=== PATIENT | male | born 1970 | race Caucasian/White ===

== ENCOUNTER 2023-04-08 10:57 | Emergency (ER) | payer SELFPAY ==
[2023-04-08 10:58] VITALS: BP 148/88; PULSE 85; RESP 20; TEMP 36.8; O2SAT 97; BMI 25.8
--- NOTE | 2023-04-08 11:45 | CT_ITS ---
FINAL REPORT TECHNIQUE: Axial images were obtained of the lumbar spine by computed tomography. Coronal and sagittal reconstruction process performed. This study was performed with techniques to keep radiation doses as low as reasonably achievable (ALARA). Individualized dose reduction techniques using automated exposure control or adjustment of mA and/or kV according to the patient''s size were employed. CLINICAL HISTORY: fall down stairs, midline pain FINDINGS: There is about 30% loss of height of the L1 vertebral body. There is hypertrophic osteophyte formation which is probably chronic. There appears to be a limbus vertebrae anteriorly at L5 which appears chronic. There is no acute fracture. L1-2: No significant spinal canal stenosis or neuroforaminal narrowing. L2-3: No significant spinal canal stenosis or neuroforaminal narrowing. L3-4: Mild diffuse disc bulge with mild bilateral neuroforaminal narrowing. L4-5: Mild diffuse disc bulge with mild bilateral neuroforaminal narrowing. L5-S1. No significant spinal canal stenosis or neuroforaminal narrowing. Note is made of tiny nonobstructing stones in the left renal collecting system. IMPRESSION: No acute fracture. 30% loss of height of the L1 vertebral body appears chronic. 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 Diffuse disc bulges and mild bilateral neuroforaminal narrowing at L3-4 and L4-5. Tiny nonobstructing stones in the left renal collecting system. Reviewed, Interpreted and Dictated by Dwain Lopez MD Transcribed by Radha Sánchez Authenticated and [facility]
--- NOTE | 2023-04-08 11:45 | CT_ITS ---
FINAL REPORT TECHNIQUE: Axial images were obtained of the thoracic spine by computed tomography. Coronal and sagittal reconstruction process performed. This study was performed with techniques to keep radiation doses as low as reasonably achievable (ALARA). Individualized dose reduction techniques using automated exposure control or adjustment of mA and/or kV according to the patient's size were employed. CLINICAL HISTORY: fall down stairs, midline pain FINDINGS: Thoracic vertebrae show normal height. There is moderate disc space narrowing throughout the thoracic spine. There is 10 degrees of thoracic scoliosis convex to the right. The facets are properly aligned. There is no acute fracture. IMPRESSION: No acute fracture. Reviewed, Interpreted and Dictated by Dwain Lopez MD Transcribed by Radha Sánchez Authenticated and [facility]
--- NOTE | 2023-04-08 11:46 | HMH.EDGENADL ---
Discharge Plan Disposition Patient Disposition: Home, Self-Care Prescriptions Prescriptions: New ibuprofen 800 mg tablet 800 mg PO TID PRN (Reason: pain) 7 Days Qty: 20 0RF cyclobenzaprine 5 mg tablet 5 mg PO TID PRN (Reason: muscle spasm) 5 Days Qty: 15 0RF prednisone 50 mg tablet 50 mg PO DAILY 5 Days Qty: 5 0RF Rx Instructions: Please begin 1 day after ED visit Referrals Follow up/Referrals: Provider,Referral, MD [Primary Care Provider] - See instructions Activity Restrictions/Add. Instructions Additional Instructions/Restrictions: Please follow-up with your primary care doctor or your neurosurgeon if your symptoms continue for an outpatient MRI. No emergent medical condition was identified today. Clinical Impressions Clinical Impression: Contusion of lower back, Contusion of mid back Instructions Patient Instructions: DI for Low Back Pain Discharge ED Provider: Brendan Cruz General Adult HPI General Chief complaint: Back Pain/Injury Stated complaint: back pain, leg numbness Time Seen by Provider: 04/08/23 11:39 Mode of Arrival: Wheelchair Source of Information: Patient Limitations: No Limitations Description of Symptoms (Recalled from ER Triage Doc. by RN): Pt c/o mid to low back pain that has been present for 3-4 days but worsened this morning. He reports parathesia to BLE R>L. States he fell down 5-6 steps 3-4 days ago. He has had previous back issues and surgeries. 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 Denies any bowel or bladder incontinence. He also reports spasms to his back. History of Present Illness HPI narrative: Patient is a 52-year-old male claims that he fell down 3-4 stairs several days ago and has midline thoracic and lumbar spine pain associated with this. States has had chronic back pain since injuries that he sustained in 2006 but this exacerbated them. Denies any urinary or bowel incontinence any urinary retention any lower extremity paralysis any history of injection drug use or fever and he does have a history of lung cancer. No known mets to his spine. Related Data Previous Rx's Medication Instructions Recorded cyclobenzaprine 5 mg tablet 5 mg PO TID PRN muscle spasm 5 04/08/23 days #15 tabs ibuprofen 800 mg tablet 800 mg PO TID PRN pain 7 days #20 04/08/23 tabs prednisone 50 mg tablet 50 mg PO DAILY 5 days #5 tabs 04/08/23 Allergies Allergy/AdvReac Type Severity Reaction Status Date / Time adhesive tape Allergy Intermediate Rash Verified 04/08/23 11:48 Penicillins Allergy Verified 04/08/23 11:48 [facility] Disclaimer: The information contained in this section may have been updated after the patient was seen, as this information can be updated by other users. Social History Smoking Status: Current every day smoker alcohol intake: never current occupational status: other Travel in the last 8 weeks: None ROS Obtained: Yes All systems reviewed & no additional complaints except as documented Physical Exam General General appearance: alert and in no apparent distress Respiratory Respiratory exam: Present normal lung sounds bilaterally; Absent respiratory distress Cardiovascular Cardiovascular exam: Present regular rate; Absent tachycardia Back Exam Back exam: Present other (Midline T and L-spine tenderness there is no step-off or deformity lower extremity motor and sensory exams normal no saddle anesthesia) Neurological Exam Neurological exam: Present alert and oriented X3 Medical Decision Making Feng Inquiry Pt receiving controlled substance: No Vital Signs: 04/08/23 10:58 04/08/23 13:24 04/08/23 13:31 Temperature 98.3 F Temperature Source Oral Pulse Rate 52 L 52 L Pulse Rate [Right] 85 Respiratory Rate 20 16 17 Blood Pressure 122/72 131/74 Blood Pressure [Right Arm] 148/88 H Blood Pressure Mean 92 101 Blood Pressure Mean [Right Arm] 108 02 Sat by Pulse Oximetry 97 99 99 Oxygen Delivery Method Room Air Room
[2023-04-08 13:24] VITALS: BP 122/72; PULSE 52; RESP 16; O2SAT 99
[2023-04-08 13:31] VITALS: BP 131/74; PULSE 52; RESP 17; O2SAT 99
--- NOTE | 2023-04-08 13:47 | PC.NURSE ---
Rounded on patient; updated on plan of care call dietz within reach of patient
[2023-04-08 14:04] VITALS: BP 146/98; PULSE 82; RESP 20; TEMP 36.8; O2SAT 98
== END 2023-04-08 14:13 | disposition home or self-care (01) ==
PROVIDERS: Emergency Provider Student in an Organized Health Care Education/Training Program
DX: S30.0XXA Contusion of lower back and pelvis, initial encounter (principal); S20.229A Contusion of unspecified back wall of thorax, initial encounter; F17.210 Nicotine dependence, cigarettes, uncomplicated; W10.8XXA Fall (on) (from) other stairs and steps, initial encounter
CPT/HCPCS: 72128; 72131; 96374; 96375; 99284; J0131

== ENCOUNTER 2023-07-30 13:28 | Emergency (ER) | payer MEDICAID, SELFPAY ==
[2023-07-30] VITALS (14 sets, daily range): BP systolic 126–155; BP diastolic 66–106; PULSE 53–128; RESP 18–22; TEMP 36.7–37; O2SAT 95–99; BMI 21.5
--- NOTE | 2023-07-30 13:29 | PC.NURSE ---
Dr. Lockwood at [facility] for pt eval
--- NOTE | 2023-07-30 13:31 | CT_ITS ---
PROCEDURE INFORMATION: Exam: CT Abdomen And Pelvis With Contrast Exam date and time: 07/30/2023 6:23 PM Age: 52 years old Clinical indication: Abdominal pain; Additional info: Lung cancer, diffuse abd pain, bloody stools TECHNIQUE: Imaging protocol: Computed tomography of the abdomen and pelvis with contrast. 3D rendering (Not supervised by radiologist): MIP and/or 3D reconstructed images were created by the technologist. Radiation optimization: All CT scans at this facility use at least one of these dose optimization techniques: automated exposure control; mA and/or kV adjustment per patient size (includes targeted exams where dose is matched to clinical indication); or iterative reconstruction. Contrast material: ISOVUE; Contrast volume: 100 ml; Contrast route: IV; COMPARISON: CT ANGIO CHEST 07/30/2023 6:23 PM FINDINGS: Mediastinal space: Question mild wall thickening in the esophagus and stomach although contracted status limits characterization. The appearance is suspicious for mild gastroesophagitis. No evidence of perforation or obstruction. Liver: Normal contour. No mass lesions. No intrahepatic biliary ductal dilatation. Gallbladder and bile ducts: Normal. No calcified stones. No ductal dilation. Pancreas: No acute pancreatic abnormalities. Small calcifications in the pancreatic head unchanged from 04/08/2023. Spleen: Normal. No splenomegaly. Adrenal glands: Normal. No adrenal mass. Kidneys and ureters: No acute abnormalities. No hydronephrosis or hydroureter. There are 2 small nonobstructive left renal stones, largest 3 mm. There are 3 small nonobstructive right renal stones, largest 3 mm. No ureteral stones. Stomach and bowel: Liquid stool content in the distal small bowel and proximal colon suspicious for developing diarrheal state, possibly mild gastroenteritis/enterocolitis without gross bowel wall changes. No evidence of obstruction or perforation. Appendix: The appendix is normal in caliber and demonstrates no evidence of appendicitis. Intraperitoneal space: No peritoneal free fluid or air. Vasculature: No acute process. No abdominal aortic aneurysm. Moderate calcific atherosclerosis. Lymph nodes: No adenopathy. Urinary bladder: The urinary bladder is moderately distended but otherwise unremarkable. Reproductive: Unremarkable as visualized. Bones/joints: No acute osseous abnormalities. Mild chronic appearing superior endplate compression deformity of L1 unchanged. L5 limbus vertebrae configuration again noted. Soft tissues: Unremarkable. IMPRESSION: 1. Question mild changes of enterocolitis and developing diarrheal state. There is no evidence of active GI hemorrhage on single phase assessment. 2. No acute vascular abnormalities are identified. No evidence of dissection or aneurysm. Moderate calcific atherosclerosis without significant stenosis. 3. Small bilateral nonobstructive renal stones. 4. Additional nonemergent findings detailed above.
--- NOTE | 2023-07-30 13:31 | CT_ITS ---
PROCEDURE INFORMATION: Exam: CTA Chest With Contrast Exam date and time: 07/30/2023 6:23 PM Age: 52 years old Clinical indication: Pain; Chest pressure; Additional info: Cp to back, cancer, tachy. Diccection vs pe vs mass TECHNIQUE: Imaging protocol: Computed tomographic angiography of the chest with contrast. Exam focused on the arteries. 3D rendering (Not supervised by radiologist): MIP and/or 3D reconstructed images were created by the technologist. Radiation optimization: All CT scans at this facility use at least one of these dose optimization techniques: automated exposure control; mA and/or kV adjustment per patient size (includes targeted exams where dose is matched to clinical indication); or iterative reconstruction. Contrast material: ISOVUE 370; Contrast volume: 100 ml; Contrast route: INTRAVENOUS (IV); COMPARISON: CR XR CHEST PORTABLE 07/30/2023 1:34 PM FINDINGS: Pulmonary arteries: The pulmonary arteries enhance appropriately with no evidence of pulmonary embolism. Respiratory motion slightly limits assessment of the small peripheral branch vessels although no suspected peripheral emboli are identified. Aorta: Mild aortic ectasia/tortuosity and calcific atherosclerosis. No aortic aneurysm or dissection. No mediastinal hematoma. Thyroid: The visualized thyroid gland demonstrates no gross abnormality. Lungs: Mild bilateral bronchial wall thickening consistent with bronchitis or bronchial edema. No bronchiectasis. No bronchial occlusions. No gross pulmonary infiltrates or edema pattern. Minimal paraseptal emphysematous changes in the pulmonary apices, right greater than left. No pulmonary mass lesions are identified. Pleural spaces: No pleural effusion. No pneumothorax. Heart: Heart size normal. Minimal coronary artery calcification. No pericardial effusion. Mediastinal space: Mild esophageal wall thickening. Stomach largely contracted although there may be mild gastric fold/wall thickening as well. The findings are suspicious for mild gastroesophagitis. No evidence of perforation or obstruction. Consider nonemergent esophagram or endoscopic assessment as clinically indicated. Lymph nodes: No supraclavicular or axillary adenopathy. No mediastinal or hilar adenopathy. Bones/joints: No acute osseous abnormalities are identified. Multilevel moderate disc degenerative changes in the mid and upper thoracic spine. Severe disc space narrowing with chronic Schmorl's node formation, endplate sclerosis, and mild marginal spurring at T7-T8, with no adjacent paraspinous swelling or fluid collection, unchanged from 04/08/2023, consistent with degenerative/osteoarthritic changes. Soft tissues: The soft tissues of the chest wall demonstrate no acute abnormality. Other findings: Bilateral calcified granulomas. IMPRESSION: 1. No evidence of pulmonary embolism or aortic dissection. 2. Mild esophageal wall thickening and possibly some mild wall/fold thickening in the stomach, suspicious for gastroesophagitis. Consider nonemergent esophagram or endoscopic assessment as clinically indicated. No evidence of perforation or obstruction. 3. Moderate multilevel advanced disc degenerative changes in the mid and upper thoracic spine, greatest at T7-T8, stable appearance from 04/08/2023. 4. Mild bronchial wall thickening suggesting mild age indeterminate bronchitis or bronchial edema. No gross pulmonary infiltrates. 5. Additional nonemergent findings detailed above. COMMENTS: The presence of pulmonary emphysema on CT is an independent risk factor for lung cancer. In the absence of a history or active diagnosis of lung cancer, it is recommended that this patient with emphysema be evaluated for enrollment in a low dose CT lung cancer screening program.
--- NOTE | 2023-07-30 13:31 | XR_ITS ---
PROCEDURE INFORMATION: Exam: XR Chest Exam date and time: 07/30/2023 1:34 PM Age: 52 years old Clinical indication: Cough and other: Chest pain, cough; Smoker's cough; Additional info: Cp, cancer TECHNIQUE: Imaging protocol: Radiologic exam of the chest. Views: 1 view. COMPARISON: CT THORACIC SPINE WO CON 04/08/2023 12:29 PM FINDINGS: Lungs: Hyperexpanded lung zeng consistent with COPD . No consolidation. Pleural spaces: Unremarkable. No pleural effusion. No pneumothorax. Heart/Mediastinum: Unremarkable. No cardiomegaly. Bones/joints: Unremarkable. IMPRESSION: No acute findings.
--- NOTE | 2023-07-30 13:34 | ECG_ITS ---
APPROVED REPORT Exam: Resting ECG HR:70 bpm ECG Measurements Heart Rate 70 AXES SC 113 P 159 QRSd 94 QRS 92 QT 341 T 110 QTc 362 Conclusion ECTOPIC ATRIAL RHYTHM WITH SHORT SC INTERVAL WITH OCCASIONAL SUPRAVENTRICULAR PREMATURE COMPLEXES BORDERLINE RIGHT AXIS DEVIATION [QRS AXIS > 90] MODERATE ST DEPRESSION [0.05+ mV ST DEPRESSION] ABNORMAL ECG UNCONFIRMED REPORT Electronically signed by : Jhonny Kirby MD 07/31/2023 15:13:04
--- NOTE | 2023-07-30 13:34 | ED_ITS ---
Discharge Plan Disposition Patient Disposition: Home, Self-Care Condition: Fair Prescriptions Prescriptions: New pantoprazole [Protonix] [address] for susp in packet 40 mg PO BID Qty: 30 0RF sucralfate [Carafate] 1 gram tablet 1 g PO TID 28 Days Qty: 84 0RF levetiracetam [Keppra] 1,000 mg tablet 1,000 mg PO Q12H 14 Days Qty: 28 0RF methocarbamol 500 mg tablet 500 mg PO Q8H Qty: 90 0RF Discontinued ibuprofen 800 mg tablet 800 mg PO TID PRN (Reason: pain) 7 Days Qty: 20 0RF cyclobenzaprine 5 mg tablet 5 mg PO TID PRN (Reason: muscle spasm) 5 Days Qty: 15 0RF prednisone 50 mg tablet 50 mg PO DAILY 5 Days Qty: 5 0RF Rx Instructions: Please begin 1 day after ED visit Referrals Follow up/Referrals: Provider,Referral, MD [Primary Care Provider] - See instructions Activity Restrictions/Add. Instructions Additional Instructions/Restrictions: As discussed, after being evaluated by the hospitalist, and after shared decision-making, you are being discharged at this time. Please return with any new or worsening symptoms. Clinical Impressions Clinical Impression: Gastritis, Upper gastrointestinal bleed, Hematochezia Discharge ED Provider: Jose Jay HPI <Ifeanyi Lockwood MD - Last Filed: 07/30/23 14:40> General Chief Complaint: Chest Pain Stated Complaint: Chest Pain Time Seen by Provider: 07/30/23 13:31 History of Present Illness HPI narrative: Patient is a 52-year-old male with past medical history of untreated lung cancer who presents emergency department for evaluation of chest pain abdominal pain. History is obtained by patient at bedside. Patient had acute onset substernal chest pain radiating to his back with associated shortness of breath at 3 AM this morning that woke him out of his sleep. Patient had 1 bloody bowel movement, states he has intermittent bloody bowel movements about 1 every month or so that are bright red, no melena. Patient has a history of lung cancer that has been untreated for multiple years. Due to severity of pain he presents here for continued evaluation. Related Data Previous Rx's Medication Instructions Recorded levetiracetam 1,000 mg tablet 1,000 mg PO Q12H 2 weeks #28 tabs 07/30/23 (Keppra) methocarbamol 500 mg tablet 500 mg PO Q8H #90 tabs 07/30/23 pantoprazole 40 mg granules 40 mg PO BID #30 ea 07/30/23 delayed-release for susp in packet (Protonix) sucralfate 1 gram tablet (Carafate) 1 g PO TID 4 weeks #84 tabs 07/30/23 Allergies Allergy/AdvReac Type Severity Reaction Status Date / Time adhesive tape Allergy Intermediate Rash Verified 04/08/23 11:48 Penicillins Allergy Verified 04/08/23 11:48 PFSH <Ifeanyi Lockwood MD - Last Filed: 07/30/23 14:40> PFSH Disclaimer: The information contained in this section may have been updated after the p atient was seen, as this information can be updated by other users. Social History (Updated 04/08/23 @ 14:04 by Brendan Cruz MD) Smoking Status: Current every day smoker alcohol intake: never current occupational status: other Travel in the last 8 weeks: None <Ifeanyi Lockwood MD - Last Filed: 07/30/23 14:40> ROS Obtained: Yes Systems reviewed as appropriate & no additional complaints except as documented Physical Exam <Ifeanyi Lockwood MD - Last Filed: 07/30/23 14:40> General General appearance: alert and in no apparent distress Head Head exam: atraumatic and normocephalic Eye Eye exam: Present PERRL and EOMI ENT ENT exam: Present mucous membranes moist Neck Neck exam: Present normal inspection Chest Chest inspection: Present normal inspection and symmetric chest wall rise Respiratory Respiratory exam: Present normal lung sounds bilaterally and other (Tachypnea); Absent respiratory distress Cardiovascular Cardiovascular exam: Present normal rhythm and tachycardia Abdominal Exam Abdominal exam: Present soft and tenderness (Diffuse); Absent guarding or rebound Extremities Exam Extremities exam: Present normal inspection Neurological Exam Neurological exam: Present alert Psychiatric Psychiatric exam: Present normal affect Skin Skin exam: Present warm and dry HEART Score <Ifeanyi Lockwood MD - Last Filed: 07/30/23 14:40> HEART Score HEART Score assessment performed?: Yes History (anamnesis): Moderately suspicious ECG: Normal Age: 45-65 years Risk factors: 1-2 risk factors Troponin: </= normal limit HEART Score: 3 <Jose Jay MD - Last Filed: 07/31/23 23:19> HEART Score HEART Score: 3 Critical Care <Ifeanyi Lockwood MD - Last Filed: 07/30/23 14:40> Critical Care Time Critical Care Time: No Medical Decision Making <Ifeanyi Lockwood MD - Last Filed: 07/30/23 14:40> Feng Inquiry Pt receiving controlled substance: No Vital Signs Vital Signs: 07/30/23 13:28 07/30/23 13:46 07/30/23 13:30 Temperature 98.6 F Temperature Source Oral Pulse Rate 77 128 H Pulse Rate [Right Radial] 77 Respiratory Rate 22 Blood Pressure 148/106 H Blood Pressure [Right Arm] 148/106 H Blood Pressure Mean Blood Pressure Mean [Right Arm] 120 Blood Pressure Position 02 Sat by Pulse Oximetry 99 99 Oxygen Delivery Method Room Air Room Air 07/30/23 14:00 07/30/23 15:01 07/30/23 15:30 Temperature Temperature Source Pulse Rate 115 H 56 L 56 L Pulse Rate [Right Radial] Respiratory Rate Blood Pressure 126/87 129/82 127/66 Blood Pressure [Right Arm] Blood Pressure Mean 86 Blood Pressure Mean [Right Arm] Blood Pressure Position 02 Sat by Pulse Oximetry 99 95 96 Oxygen Delivery Method Room Air Room Air Room Air 07/30/23 16:00 07/30/23 17:01 07/30/23 17:30 Temperature Temperature Source Pulse Rate 60 65 60 Pulse Rate [Right Radial] Respiratory Rate Blood Pressure 141/89 H 137/85 155/87 H Blood Pressure [Right Arm] Blood Pressure Mean 106 Blood Pressure Mean [Right Arm] Blood Pressure Position 02 Sat by Pulse Oximetry 97 96 96 Oxygen Delivery Method Room Air Room Air Room Air 07/30/23 18:01 07/30/23 19:00 07/30/23 19:31 Temperature Temperature Source Pulse Rate 64 53 L 72 Pulse Rate [Right Radial] Respiratory Rate Blood Pressure 145/83 H 131/84 145/85 H Blood Pressure [Right Arm] Blood Pressure Mean Blood Pressure Mean [Right Arm] Blood Pressure Position 02 Sat by Pulse Oximetry 97 97 99 Oxygen Delivery Method Room Air Room Air 07/30/23 20:00 07/30/23 21:39 Temperature 98.1 F Temperature Source Oral Pulse Rate 61 60 Pulse Rate [Right Radial] Respiratory Rate 18 Blood Pressure 132/85 135/82 Blood Pressure [Right Arm] Blood Pressure Mean Blood Pressure Mean [Right Arm] Blood Pressure Position Sitting 02 Sat by Pulse Oximetry 98 Oxygen Delivery Method Room Air Lab Data Labs: Lab Results 07/30/23 13:30: WBC 15.0 H, RBC 5.85, Hgb 17.7, Hct 54.1 H, MCV 92.5, MCH 30.3, MCHC 32.7, RDW 13.9, Plt Count 241, MPV 11.5 H, Neut % (Auto) 88.1 H, Lymph % (Auto) 7.8 L, Henderson % (Auto) 3.4, Eos % (Auto) 0.4, Baso % (Auto) 0.1, Neut # (Auto) 13.2 H, Lymph # (Auto) 1.2, Henderson # (Auto) 0.5, Eos # (Auto) 0.0, Baso # (Auto) 0.0, Total Counted 100, Neutrophils % (Manual) 83 H, Lymphocytes % ( Manual) 16, Monocytes % (Manual) 1 L, Platelet Estimate Normal, RBC Morphology Normal, Sodium 139, Potassium 3.9, Chloride 102, Carbon Dioxide 24, Anion Gap 16.9 H, BUN 14, Creatinine 1.00, Estimated Creat Clear 81, Estimated GFR 78, Est GFR ( Amer) 94, Glucose 117 H, Calcium 9.2, Total Bilirubin 0.9, AST 36, ALT 35, Alkaline Phosphatase 150 H, Troponin I < 0.01, Total Protein 9.1 H, Albumin 4.8, Globulin 4.3 H, Albumin/Globulin Ratio 1.1, Lipase 86 07/30/23 13:47: Urine Color Yellow, Urine Appearance Clear, Urine pH 5.5, Ur S pecific Whitlash >= 1.030, Urine Protein 2+, Urine Glucose (UA) Negative, Urine Ketones Trace, Urine Blood 2+, Urine Nitrate Negative, Urine Bilirubin 1+ A, Urine Urobilinogen 0.2, Ur Leukocyte Esterase Negative, Urine RBC 3-5, Urine WBC Occasional, Ur Squamous Epith Cells 3-5, Urine Bacteria Trace 07/30/23 16:45: Troponin I < 0.01 07/30/23 13:30 07/30/23 13:30 Response Orders (Tests/Meds): ED MEDICATIONS Discontinued Medications Generic Name Dose Route Start Last Admin Trade Name Freq PRN Reason Stop Dose Admin Acetaminophen 1,000 mg 07/30/23 13:31 07/30/23 13:58 Acetaminophen 1,000mg/100ml Vial IV 07/30/23 13:32 1,000 mg ONCE ONE Administration Belladonna Alkaloids 60 ml 07/30/23 20:01 07/30/23 20:03 Belladonna Alkaloids 60 Ml Ml PO 07/30/23 20:02 60 ml ONCE ONE Administration Diphenhydramine HCl 25 mg 07/30/23 14:28 07/30/23 17:26 Diphenhydramine 50mg/Ml Vial IV 07/30/23 14:29 25 mg ONCE ONE Administration Famotidine 20 mg 07/30/23 14:29 07/30/23 17:25 Famotidine 20mg/2ml Vial IV 07/30/23 14:30 20 mg ONCE ONE Administration Lactated Ringer's 1,000 mls @ 999 mls/hr 07/30/23 13:39 07/30/23 13:59 Lactated Ringer's 1000 Ml Bag IV 07/30/23 14:39 999 mls/hr .Q1H1M ONE Administration Ceftriaxone Sodium 1 gm/ 50 mls @ 100 mls/hr 07/30/23 21:00 07/30/23 21:08 Sodium Chloride IV 08/09/23 20:59 100 mls/hr Q12H TIFFANIE Administration Pantoprazole Sodium 80 mg/ 100 mls @ 100 mls/hr 07/30/23 20:53 Sodium Chloride IV 07/30/23 21:52 ONCE ONE Pantoprazole Sodium 80 mg/ 100 mls @ 10 mls/hr 07/30/23 22:00 Sodium Chloride IV 08/02/23 21:59 .Q10H TIFFANIE Octreotide Acetate 500 mcg/ 255 mls @ 25.5 mls/hr 07/30/23 21:00 Sodium Chloride IV 08/29/23 20:59 .Q10H TIFFNAIE 50 MCG/HR Iopamidol 100 ml 07/30/23 18:29 07/30/23 18:30 Iopamidol-370 (76%);100ml Bottle IV 07/30/23 18:30 100 ml ONCE ONE Administration Methylprednisolone Sodium Succinate 125 mg 07/30/23 14:29 07/30/23 14:35 Methylprednisolone Sod Succ 125mg Vial IV 07/30/23 14:30 125 mg ONCE ONE Administration Morphine Sulfate 4 mg 07/30/23 13:31 07/30/23 13:59 Morphine 4mg/Ml Syringe IV 07/30/23 13:32 4 mg ONCE ONE Administration Nicotine 21 mg 07/30/23 14:38 07/30/23 14:51 Nicotine 21mg/24hr Patch TD 08/29/23 14:37 21 mg DAILYP PRN Administration Nicotine Cravings Ondansetron HCl 4 mg 07/30/23 13:48 07/30/23 13:58 Ondansetron 4mg/2ml Vial IV 07/30/23 13:49 4 mg ONCE ONE Administration Sodium Chloride 8 ml 07/30/23 14:29 Sodium Chloride 0.9% 10ml Vial IV 08/29/23 14:28 NEEDED PRN dilute pepcid Sodium Chloride 50 ml 07/30/23 18:29 07/30/23 18:30 0.9 % Sodium Chloride 50 Ml Vial IV 07/30/23 18:30 50 ml ONCE ONE Administration Sodium Chloride 10 ml 07/30/23 18:29 07/30/23 18:30 Sodium Chloride 0.9% 10ml Syr (Rad Only) IV 07/30/23 18:30 10 ml ONCE ONE Administration ORDERS Category Date Time Status CT abdomen pelvis w con Stat Cat Scan 07/30/23 13:[address] angio chest - dissection Stat Cat Scan 07/30/23 13:31 Completed CXR --portable [XR chest portable] Stat Exams 07/30/23 13:31 Completed CBC w/Auto Diff [Complete Blood Count Auto Diff] Stat Lab 07/30/23 13:30 Completed CMP [Comprehensive Metabolic Panel] Stat Lab 07/30/23 13:30 Completed Lipase Stat Lab 07/30/23 13:30 Completed Trop I [Troponin I] Stat Lab 07/30/23 13:30 Completed Troponin I Q3H Lab 07/30/23 16:45 Completed UA [Urinalysis and Microscopic] Stat Lab 07/30/23 13:47 Completed ECG initial Besson Routine Y 07/30/23 13:34 Completed ECG Data Tracing #1: ECG Narrative: Independently interpreted by me, rate is 70, rhythm is largely regular with an ectopic atrial beat, no ST elevation in anatomical contiguous leads, QTc 362. MDM Narrative Medical Decision Narrative: In summary patient is a 52-year-old male with past medical history described above who presents emergency department for evaluation of chest pain, abdominal pain. Patient is hemodynamically stable and appearing in pain upon arrival, tachycardic and tachypneic clear to auscultation. Differential includes worsening malignancy, ACS, pulmonary embolism, pancreatitis, colitis, among others. Workup will be conducted with hematologic labs, CTA chest, CT abdomen pelvis IV contrast, urinalysis. Initial inventions include crystalloid bolus, IV Tylenol, morphine. Initial workup reviewed by me, hematologic labs remarkable for slightly elevated anion gap, remainder are nonactionable. Urinalysis interpreted by me and not consistent with infection. Upon further questioning patient states that he is allergic to IV contrast, he has a diffuse burning sensation and felt as if he was about to have a seizure multiple years ago. Patient never had a true seizure, it responded to Benadryl, he did not have anaphylaxis, no hypotension. Given this and the multitude of pathologies that would require IV contrast to be ruled out particularly in his case shared decision-making discussion was had at bedside and patient wishes to proceed with pretreatment and subsequent administration of IV contrast. Pretreatment and conduction of scans pending at time of transfer to the oncoming physician, Dr. Jay. <Jose Jay MD - Last Filed: 07/31/23 23:19> Vital Signs Vital Signs: 07/30/23 13:28 07/30/23 13:46 07/30/23 13:30 Temperature 98.6 F Temperature Source Oral Pulse Rate 77 128 H Pulse Rate [Right Radial] 77 Respiratory Rate 22 Blood Pressure 148/106 H Blood Pressure [Right Arm] 148/106 H Blood Pressure Mean Blood Pressure Mean [Right Arm] 120 Blood Pressure Position 02 Sat by Pulse Oximetry 99 99 Oxygen Delivery Method Room Air Room Air 07/30/23 14:00 07/30/23 15:01 07/30/23 15:30 Temperature Temperature Source Pulse Rate 115 H 56 L 56 L Pulse Rate [Right Radial] Respiratory Rate Blood Pressure 126/87 129/82 127/66 Blood Pressure [Right Arm] Blood Pressure Mean 86 Blood Pressure Mean [Right Arm] Blood Pressure Position 02 Sat by Pulse Oximetry 99 95 96 Oxygen Delivery Method Room Air Room Air Room Air 07/30/23 16:00 07/30/23 17:01 07/30/23 17:30 Temperature Temperature Source Pulse Rate 60 65 60 Pulse Rate [Right Radial] Respiratory Rate Blood Pressure 141/89 H 137/85 155/87 H Blood Pressure [Right Arm] Blood Pressure Mean 106 Blood Pressure Mean [Right Arm] Blood Pressure Position 02 Sat by Pulse Oximetry 97 96 96 Oxygen Delivery Method Room Air Room Air Room Air 07/30/23 18:01 07/30/23 19:00 07/30/23 19:31 Temperature Temperature Source Pulse Rate 64 53 L 72 Pulse Rate [Right Radial] Respiratory Rate Blood Pressure 145/83 H 131/84 145/85 H Blood Pressure [Right Arm] Blood Pressure Mean Blood Pressure Mean [Right Arm] Blood Pressure Position 02 Sat by Pulse Oximetry 97 97 99 Oxygen Delivery Method Room Air Room Air 07/30/23 20:00 07/30/23 21:39 Temperature 98.1 F Temperature Source Oral Pulse Rate 61 60 Pulse Rate [Right Radial] Respiratory Rate 18 Blood Pressure 132/85 135/82 Blood Pressure [Right Arm] Blood Pressure Mean Blood Pressure Mean [Right Arm] Blood Pressure Position Sitting 02 Sat by Pulse Oximetry 98 Oxygen Delivery Method Room Air Lab Data Labs: Lab Results 07/30/23 13:30: WBC 15.0 H, RBC 5.85, Hgb 17.7, Hct 54.1 H, MCV 92.5, MCH 30.3, MCHC 32.7, RDW 13.9, Plt Count 241, MPV 11.5 H, Neut % (Auto) 88.1 H, Lymph % (Auto) 7.8 L, Henderson % (Auto) 3.4, Eos % (Auto) 0.4, Baso % (Auto) 0.1, Neut # (Auto) 13.2 H, Lymph # (Auto) 1.2, Henderson # (Auto) 0.5, Eos # (Auto) 0.0, Baso # (Auto) 0.0, Total Counted 100, Neutrophils % (Manual) 83 H, Lymphocytes % (Manual) 16, Monocytes % (Manual) 1 L, Platelet Estimate Normal, RBC Morphology Normal, Sodium 139, Potassium 3.9, Chloride 102, Carbon Dioxide 24, Anion Gap 16.9 H, BUN 14, Creatinine 1.00, Estimated Creat Clear 81, Estimated GFR 78, Est GFR ( Amer) 94, Glucose 117 H, Calcium 9.2, Total Bilirubin 0.9, AST 36, ALT 35, Alkaline Phosphatase 150 H, Troponin I < 0.01, Total Protein 9.1 H, Albumin 4.8, Globulin 4.3 H, Albumin/Globulin Ratio 1.1, Lipase 86 07/30/23 13:47: Urine Color Yellow, Urine Appearance Clear, Urine pH 5.5, Ur Specific Whitlash >= 1.030, Urine Protein 2+, Urine Glucose (UA) Negative, Urine Ketones Trace, Urine Blood 2+, Urine Nitrate Negative, Urine Bilirubin 1+ A, Urine Urobilinogen 0.2, Ur Leukocyte Esterase Negative, Urine RBC 3-5, Urine WBC Occasional, Ur Squamous Epith Cells 3-5, Urine Bacteria Trace 07/30/23 16:45: Troponin I < 0.01 Response Orders (Tests/Meds): ED MEDICATIONS Discontinued Medications Generic Name Dose Route Start Last Admin Trade Name Freq PRN Reason Stop Dose Admin Acetaminophen 1,000 mg 07/30/23 13:31 07/30/23 13:58 Acetaminophen 1,000mg/100ml Vial IV 07/30/23 13:32 1,000 mg ONCE ONE Administration Belladonna Alkaloids 60 ml 07/30/23 20:01 07/30/23 20:03 Belladonna Alkaloids 60 Ml Ml PO 07/30/23 20:02 60 ml ONCE ONE Administration Diphenhydramine HCl 25 mg 07/30/23 14:28 07/30/23 17:26 Diphenhydramine 50mg/Ml Vial IV 07/30/23 14:29 25 mg ONCE ONE Administration Famotidine 20 mg 07/30/23 14:29 07/30/23 17:25 Famotidine 20mg/2ml Vial IV 07/30/23 14:30 20 mg ONCE ONE Administration Lactated Ringer's 1,000 mls @ 999 mls/hr 07/30/23 13:39 07/30/23 13:59 Lactated Ringer's 1000 Ml Bag IV 07/30/23 14:39 999 mls/hr .Q1H1M ONE Administration Ceftriaxone Sodium 1 gm/ 50 mls @ 100 mls/hr 07/30/23 21:00 07/30/23 21:08 Sodium Chloride IV 08/09/23 20:59 100 mls/hr Q12H TIFFANIE Administration Pantoprazole Sodium 80 mg/ 100 mls @ 100 mls/hr 07/30/23 20:53 Sodium Chloride IV 07/30/23 21:52 ONCE ONE Pantoprazole Sodium 80 mg/ 100 mls @ 10 mls/hr 07/30/23 22:00 Sodium Chloride IV 08/02/23 21:59 .Q10H TIFFANIE Octreotide Acetate 500 mcg/ 255 mls @ 25.5 mls/hr 07/30/23 21:00 Sodium Chloride IV 08/29/23 20:59 .Q10H TIFFANIE 50 MCG/HR Iopamidol 100 ml 07/30/23 18:29 07/30/23 18:30 Iopamidol-370 (76%);100ml Bottle IV 07/30/23 18:30 100 ml ONCE ONE Administration Methylprednisolone Sodium Succinate 125 mg 07/30/23 14:29 07/30/23 14:35 Methylprednisolone Sod Succ 125mg Vial IV 07/30/23 14:30 125 mg ONCE ONE Administration Morphine Sulfate 4 mg 07/30/23 13:31 07/30/23 13:59 Morphine 4mg/Ml Syringe IV 07/30/23 13:32 4 mg ONCE ONE Administration Nicotine 21 mg 07/30/23 14:38 07/30/23 14:51 Nicotine 21mg/24hr Patch TD 08/29/23 14:37 21 mg DAILYP PRN Administration Nicotine Cravings Ondansetron HCl 4 mg 07/30/23 13:48 07/30/23 13:58 Ondansetron 4mg/2ml Vial IV 07/30/23 13:49 4 mg ONCE ONE Administration Sodium Chloride 8 ml 07/30/23 14:29 Sodium Chloride 0.9% 10ml Vial IV 08/29/23 14:28 NEEDED PRN dilute pepcid Sodium Chloride 50 ml 07/30/23 18:29 07/30/23 18:30 0.9 % Sodium Chloride 50 Ml Vial IV 07/30/23 18:30 50 ml ONCE ONE Administration Sodium Chloride 10 ml 07/30/23 18:29 07/30/23 18:30 Sodium Chloride 0.9% 10ml Syr (Rad Only) IV 07/30/23 18:30 10 ml ONCE ONE Administration ORDERS Category Date Time Status CT abdomen pelvis w con Stat Cat Scan 07/30/23 13:[address] angio chest - dissection Stat Cat Scan 07/30/23 13:31 Completed CXR --portable [XR chest portable] Stat Exams 07/30/23 13:31 Completed CBC w/Auto Diff [Complete Blood Count Auto Diff] Stat Lab 07/30/23 13:30 Completed CMP [Comprehensive Metabolic Panel] Stat Lab 07/30/23 13:30 Completed Lipase Stat Lab 07/30/23 13:30 Completed Trop I [Troponin I] Stat Lab 07/30/23 13:30 Completed Troponin I Q3H Lab 07/30/23 16:45 Completed UA [Urinalysis and Microscopic] Stat Lab 07/30/23 13:47 Completed ECG initial Besson Routine Y 07/30/23 13:34 Completed MDM Narrative Medical Decision Narrative: In summary patient is a 52-year-old male with past medical history described above who presents emergency department for evaluation of chest pain, abdominal pain. Patient is hemodynamically stable and appearing in pain upon arrival, tachycardic and tachypneic clear to auscultation. Differential includes worsening malignancy, ACS, pulmonary embolism, pancreatitis, colitis, among others. Workup will be conducted with hematologic labs, CTA chest, CT abdomen pelvis IV contrast, urinalysis. Initial inventions include crystalloid bolus, IV Tylenol, morphine. Initial workup reviewed by me, hematologic labs remarkable for slightly elevated anion gap, remainder are nonactionable. Urinalysis interpreted by me and not consistent with infection. Upon further questioning patient states that he is allergic to IV contrast, he has a diffuse burning sensation and felt as if he was about to have a seizure multiple years ago. Patient never had a true seizure, it responded to Benadryl, he did not have anaphylaxis, no hypotension. Given this and the multitude of pathologies that would require IV contrast to be ruled out particularly in his case shared decision-making discussion was had at bedside and patient wishes to proceed with pretreatment and subsequent administration of IV contrast. Pretreatment and conduction of scans pending at time of transfer to the oncoming physician, Dr. Jay. Jose Jay MD: I assumed care of this patient from the previous emergency medicine physician. Upon reevaluation patient's continues to describe diffuse abdominal pain. Patient CT imaging was independently visualized and interpreted by me significant for no acute extravasation on CTA imaging, CT chest imaging with evidence of esophagitis. Patient describes to me that he has had 2 episodes of hematochezia. He initially denied any hematemesis however upon fu rther questioning describes multiple episodes of coffee-ground emesis in the setting of history of alcohol use disorder in remission. He denies any history of esophageal varices but believes he has never had a endoscopy before. For these reasons, I maintain a high index of suspicion for upper GI bleed in the setting of varices until proven otherwise given his CT imaging and clinical history and presentation. He is hemodynamically stable although risk for decompensation. I initiated ceftriaxone IV therapy IV, Protonix, as well as octreotide. Hospital medicine service was consulted for evaluation for admission and after shared decision making involving hospitalist, patient, patient is deemed appropriate for discharge at this time with strict return precautions and outpatient follow-up. I prescribed patient twice daily PPI, Carafate, and patient's home Keppra which he states he had been out of for some time to the hospitalist. Patient, I am told, has upcoming GI appointments in the near future. I again spoke with patient's and he is requesting to be discharged at this time. I discussed the risk of discharge at this time including , disability, he is requesting again to be discharged. Return precautions were given.
[2023-07-30 13:47] LABS: Chloride 102 mmol/L (98-107); Potassium 3.9 mmoL/L (3.5-5.1); Sodium 139 mmol/L (136-145)
[2023-07-30 13:49] LABS: Blood Urea Nitrogen 14 mg/dl (9-20); Creatinine Clearance Estimated 81 mL/min (50-200); Estimated Glomerular Filt Rate 78 ml/min (>60); GFR (African American) 94 ML/MIN (>60)
[2023-07-30 13:50] LABS: Alanine Aminotransferase 35 U/L (12-78); Albumin Level 4.8 g/dl (3.5-5.0); Albumin/Globulin Ratio 1.1 (1.1-1.8); Alkaline Phosphatase 150 U/L (38-126); Anion Gap 16.9 mEq/L (5-15); Aspartate Amino Transferase 36 U/L (17-59); Bilirubin,Total 0.9 mg/dl (0.2-1.3); Calcium 9.2 mg/dl (8.4-10.2); Carbon Dioxide 24 mmol/L (22.0-30.0); Globulin 4.3 g/dL (1.3-3.2); Glucose 117 mg/dl (74-100); Lipase 86 U/L (23-300); Total Protein,Serum 9.1 g/dl (6.3-8.2)
[2023-07-30 13:51] LABS: Appearance,Urine CLEAR (Clear); Blood, Urine 2+ (Negative); Color,Urine YELLOW (Yellow); Glucose,Urine (UA) Negative (Negative); Ketones,Urine TRACE (Negative); Leukocyte Esterase,Urine Negative (Negative); Microscopic, Urine URINE MICROSCOPIC (MICROSCOPIC); Nitrate,Urine Negative (Negative); PH,Urine 5.5 (5.0-8.5); Protein,Urine 2+ (Negative); Specific Gravity, Urine >= 1.030 (1.005-1.030); Urobilinogen,Urine 0.2 EU/dl (0.2)
[2023-07-30 13:53] LABS: Bilirubin,Urine 1+ (Negative)
--- NOTE | 2023-07-30 13:55 | PC.NURSE ---
Pt gone to RAD via wheelchair
[2023-07-30] MEDS: ACETAMINOPHEN 1,000MG/100ML VIAL 1000 MG IV (13:58)
[2023-07-30] MEDS: ONDANSETRON 4MG/2ML VIAL 4 MG IV (13:58)
[2023-07-30] MEDS: MORPHINE 4MG/ML SYRINGE 4 MG IV (13:59)
[2023-07-30] MEDS: LACTATED RINGERS 1000ML 1,000 ML 999 ML IV (13:59)
[2023-07-30 14:02] LABS: Troponin I < 0.01 ng/ml (0.00-0.034)
[2023-07-30 14:02] LABS: Bacteria,Urine Trace /lpf; WBC,Urine Occasional #/hpf (0-3)
--- NOTE | 2023-07-30 14:11 | PC.NURSE ---
bilateral dorsalis pedis pulses present by palpation per ER MD
[2023-07-30] MEDS: METHYLPREDNISOLONE SOD SUCC 125MG VIAL 125 MG IV (14:35)
[2023-07-30] MEDS: NICOTINE 21MG/24HR PATCH 21 MG TD (14:51)
[2023-07-30] MEDS: FAMOTIDINE 20MG/2ML VIAL 20 MG IV (17:25)
[2023-07-30] MEDS: diphenhydrAMINE 50MG/ML VIAL 25 MG IV (17:26)
[2023-07-30 17:31] LABS: Troponin I < 0.01 ng/ml (0.00-0.034)
--- NOTE | 2023-07-30 18:25 | PC.NURSE ---
pt trasnported to CT with grader operator and nurse
[2023-07-30] MEDS: IOPAMIDOL-370 (76%);100ML BOTTLE 100 ML IV (18:30)
[2023-07-30] MEDS: SODIUM CHLORIDE 0.9% 10ML SYR (RAD ONLY) 10 ML IV (18:30)
[2023-07-30] MEDS: 0.9 % SODIUM CHLORIDE 50 ML VIAL IV (18:30)
--- NOTE | 2023-07-30 18:31 | PC.NURSE ---
returned from ct scan
[2023-07-30 18:56] LABS: Hematocrit 54.1 % (42.0-52.0); Hemoglobin 17.7 g/dL (14.1-18.0); Mean Corpuscular Volume 92.5 fl (80-94); Red Blood Count 5.85 M/mm3 (4.60-6.20)
[2023-07-30 18:57] LABS: Basophils % 0.1 % (0.1-2.0); Eosinophils % 0.4 % (0.1-12.0); Lymphocytes % 7.8 % (10-50); Mean Corpuscular HGB Conc 32.7 g/dL (31.8-35.4); Mean Corpuscular Hemoglobin 30.3 pg (27.0-31.2); Mean Platelet Volume 11.5 fl (7.4-10.4); Monocytes % 3.4 % (1.7-9.3); Neutrophils % 88.1 % (37.0-80.0); Platelet Count 241 K/mm3 (142-424); Red Cell Distribution Width 13.9 % (11.5-17.5)
[2023-07-30 18:58] LABS: Lymphocytes # 1.2 K/mm3 (0.7-4.5); Monocytes # 0.5 K/mm3 (0.1-1.0); Neutrophils # 13.2 K/mm3 (1.8-7.8)
[2023-07-30 19:00] LABS: MANUAL DIFFERENTIAL MANUAL DIFFERENTIAL (MANUAL DIFF)
[2023-07-30 19:56] LABS: Lymphocytes % 16 % (10-50); Monocytes % 1 % (2-9); Neutrophils % 83 % (42-76); Platelet Estimate Normal; RBC Morphology Normal; Total Cells Counted 100
--- NOTE | 2023-07-30 19:56 | PC.NURSE ---
rounded on patient, no needs at this time
[2023-07-30] MEDS: BELLADONNA ALKALOIDS 60 ML ML PO (20:03)
--- NOTE | 2023-07-30 21:02 | PC.NURSE ---
ER MD on phone with hospital medicine regarding admission
--- NOTE | 2023-07-30 21:02 | PC.NURSE ---
contacted warehouse worker for bed assignment.
[2023-07-30] MEDS: CEFTRIAXONE 1 GM 1 GM in 0.9 % SODIUM CHLORIDE 50 ML IV (21:08)
--- NOTE | 2023-07-30 21:22 | PC.NURSE ---
Hospitalist at bedside speaking to patient.
--- NOTE | 2023-07-30 21:28 | PC.NURSE ---
Patient spoke with Hospitalist and opted to be discharged instead of admitted for observation at this time. Patient was ready to leave, removed PIVL at this time per patient preference.
== END 2023-07-30 21:52 | disposition home or self-care (01) ==
PROVIDERS: Emergency Medicine; Emergency Provider Emergency Medicine
DX: K92.2 Gastrointestinal hemorrhage, unspecified (principal); R07.89 Other chest pain; R10.84 Generalized abdominal pain; R06.02 Shortness of breath; K92.1 Melena; F17.210 Nicotine dependence, cigarettes, uncomplicated
CPT/HCPCS: 36415; 71045; 71275; 74177; 80053; 81001; 83690; 84484; 85007; 85025; 93005; 96361; 96365; 96366; 96367; 96375; 99285; J0131; J0696; J2405; Q9967